=== PATIENT | male | born 2005 | race Caucasian/White ===

== ENCOUNTER 2025-02-28 17:45 | Emergency (ER) | payer MEDICAID, SELFPAY ==
[2025-02-28 17:50] VITALS: BP 125/68; PULSE 88; RESP 18; TEMP 37.1; O2SAT 96; BMI 23.1
--- NOTE | 2025-02-28 18:06 | XRR_ITS ---
PROCEDURE INFORMATION: Exam: XR Left Ankle Exam date and time: 02/28/2025 7:38 PM Age: 19 years old Clinical indication: Injury or trauma; Fall; Blunt trauma; Ankle; Left; Additional info: Pain post fall TECHNIQUE: Imaging protocol: Radiologic exam of the left ankle. Views: 3 or more views. COMPARISON: No relevant prior studies available. FINDINGS: Bones/joints: Ankle mortise alignment is normal. Joint spaces are preserved. No acute fracture. Soft tissues: There is lateral soft tissue edema at the ankle. XR/XR ankle LT min 3V* [id number] IMPRESSION: No acute fracture.
--- NOTE | 2025-02-28 18:06 | XRR_ITS ---
PROCEDURE INFORMATION: Exam: XR Left Wrist Exam date and time: 02/28/2025 7:38 PM Age: 19 years old Clinical indication: Injury or trauma; Fall; Blunt trauma (contusions or hematomas); Wrist; Left; Additional info: Swelling, pain post fall. TECHNIQUE: Imaging protocol: Radiologic exam of the left wrist. Views: 3 or more views. COMPARISON: No relevant prior studies available. FINDINGS: Bones/joints: There is an acute nondisplaced fracture of the scaphoid waist. Alignment is normal. Joint spaces are preserved. Soft tissues: Mild dorsal soft tissue swelling at the wrist. XR/XR wrist LT min 3V* [id number] IMPRESSION: Acute nondisplaced scaphoid waist fracture.
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
[2025-02-28] MEDS: ondansetron hcl ODT 4 mg Tab PO (23:36)
[2025-02-28] MEDS: HYDROcodone-acetaminophen 5-325 mg Tablet 1 TAB PO (23:36)
== END 2025-02-28 23:38 | disposition home or self-care (01) ==
PROVIDERS: Emergency Provider Physician Assistant
DX: S62.002A Unspecified fracture of navicular [scaphoid] bone of left wrist, initial encounter for closed fracture (principal); S93.402A Sprain of unspecified ligament of left ankle, initial encounter; X58.XXXA Exposure to other specified factors, initial encounter
CPT/HCPCS: 12345; 73110; 73610; 99283; J9999; Q0162